=== PATIENT | female | born 1975 | race African-American/Black ===

== ENCOUNTER 2017-04-10 13:00 | Emergency (ER) | payer OTHER ==
[~2017-04-10] VITALS: Ht 160 cm; Wt 64.9 kg
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
[2017-04-10] MEDS ORDERED: TYLENOL EXTRA500 MG ORAL (16:30)
[2017-04-10] MEDS ORDERED: BACITRACIN-P28.35 GM TP (16:30)
[2017-04-10] MEDS ORDERED: CYCLOBENZAPRINE10 MG ORAL (16:30)
[2017-04-10 16:47] VITALS: BP 122/65
[2017-04-10 16:48] VITALS: BP 117/68
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
--- NOTE | 2017-04-11 10:54 | Diagnostic Imaging Report ---
Indication: Headache Technique: Contiguous 5 mm thick transaxial imaging of the head obtained in a Siemens Sensation [address] scanner. Soft tissue and bone windows generated. Total Dose length Product (DLP): [address] Dose Index Volume (CTDIvol): 70.38 mGy Comparison: none Findings: The size and configuration of the cortical sulci, basal cisterns, and ventricles are within normal limits for age. There is no mass effect, midline shift, or edema identified. There is no evidence of acute hemorrhage or abnormal intra-axial or extra-axial fluid collections. The bones and soft tissues are unremarkable. Mild mucosal thickening in ethmoid sinus noted. Impression: No mass effect, edema or acute bleed. Sinusitis The CT scanner at [facility] is accredited by the [employer] and the scans are performed using dose optimization techniques as appropriate to a performed exam including Automatic Exposure control.
--- NOTE | 2017-04-11 11:55 | Diagnostic Imaging Report ---
Indication: Chest pain Comparison: None A single view chest radiograph was obtained. Findings: Cardiomediastinal appearance is within normal limits for age. Pulmonary vascularity is appropriate. The diaphragmatic contour is smooth and costophrenic angles are sharp. No pleural effusions are identified. The bones are unremarkable. Impression: No acute findings
== END 2017-04-10 16:48 | disposition home or self-care (01) ==
LOC: EMR 16:28
DX: S00.83XA Contusion of other part of head, initial encounter (principal); S10.93XA Contusion of unspecified part of neck, initial encounter; S40.811A Abrasion of right upper arm, initial encounter; Y04.2XXA Assault by strike against or bumped into by another person, initial encounter; Y92.89 Other specified places as the place of occurrence of the external cause; J32.9 Chronic sinusitis, unspecified
CPT/HCPCS: 70450; 70486; 71010; 99284

== ENCOUNTER 2017-08-12 22:48 | Emergency (ER) | payer OTHER ==
[~2017-08-12] VITALS: Ht 157.5 cm; Wt 67.6 kg
[~2017-08-12 22:48] MED LIST: BACITRACIN-P28.35 GM TP; CYCLOBENZAPRINE10 MG ORAL; TYLENOL EXTRA500 MG ORAL
[2017-08-12 23:10] VITALS: BP 103/74
[2017-08-12] MEDS ORDERED: Morphine Sulfate 4mg/ml Inj IVP ONE (23:30)
[2017-08-12] MEDS ORDERED: Ketorolac 30mg Inj IV ONE (23:30)
[2017-08-12 23:54] LABS: APPEARANCE,URINE SLIGHTLY CLOUDY; KETONES,URINE NEGATIVE (NEGATIVE); LEUKOCYTE ESTERASE ,URINE 2+ (NEGATIVE); NITRITE,URINE NEGATIVE (NEGATIVE); PH,URINE 6 (4.5-8.0); PROTEIN,URINE NEGATIVE (NEGATIVE); UROBILINOGEN,URINE 1 MG/DL (0.0-1.0)
[2017-08-13] LABS: ICTOTEST NEGATIVE
[2017-08-13 00:01] LABS: BASOPHILS % (AUTO) 1.3 % (0.0-2.0); EOSINOPHILS % (AUTO) 4.2 % (0.0-3.0); LYMPHOCYTES % (AUTO) 39.6 % (20.0-45.0); MEAN CORPUSCULAR HEMOGLOBIN 27.1 PG (27.0-31.0); MEAN CORPUSCULAR HGB CONC 32.5 G/DL (32.0-36.0); MEAN CORPUSCULAR VOLUME 83 FL (80-99); MEAN PLATELET VOLUME 9.3 FL (6.5-10.1); NEUTROPHILS % (AUTO) 48.8 % (45.0-75.0); PLATELET COUNT 179 K/UL (150-450); RED BLOOD COUNT 4.77 M/UL (4.20-5.40); RED CELL DISTRIBUTION WIDTH 12.1 % (11.6-14.8); WHITE BLOOD COUNT 8.8 K/UL (4.8-10.8)
[2017-08-13 00:03] LABS: BACTERIA,URINE FEW /HPF; SQUAMOUS EPITHELIAL CELL,UR MODERATE /LPF (NONE/OCC); TRANSITIONAL EPI CELLS,URINE FEW /LPF; WBC,URINE 20-30 /HPF (0 - 2)
[2017-08-13 00:04] LABS: ANION GAP 7 mmol/L (5-15); CALCIUM 8.8 MG/DL (8.5-10.1); CARBON DIOXIDE 28 MMOL/L (21-32); CHLORIDE 105 MMOL/L (98-107); CREATININE 1.1 MG/DL (0.55-1.30); GLOMERULAR FILTRATION RATE > 60 mL/min (>60); POTASSIUM 3.6 MMOL/L (3.5-5.1); SODIUM 140 MMOL/L (136-145)
[2017-08-13 00:08] LABS: ALANINE AMINOTRANSFERASE 388 U/L (12-78); ASPARTATE AMINO TRANSFERASE 283 U/L (15-37); LIPASE 101 U/L (73-393); TOTAL PROTEIN 7.1 G/DL (6.4-8.2)
[2017-08-13] MEDS ORDERED: Piperacillin/Tazobactam 3.375 GM in NS 55 ML IVPB ONE (00:30)
[2017-08-13] MEDS ORDERED: Zosyn 3.375gm inj ONE (00:59)
[2017-08-13 01:00] VITALS: BP 103/74
--- NOTE | 2017-08-13 01:43 | Emergency Room Report ---
History of Present Illness General Chief Complaint: Abdominal Pain Source: Patient Present Illness HPI 42-year-old female walks in with one week of "severe abdominal pain". Pain started at same time as menstrual cycle. States doesn't usually have painful menstrual cycle. No associated nausea, vomiting, diarrhea. Previous cholecystectomy. Went to outside hospital a few days ago, stay she had an x-ray , but was told nothing is wrong and was discharged with Tylenol. Has been taking Tylenol but without much improvement. Associated with polyuria but no dysuria or vaginal discharge. Allergies: Coded Allergies: No Known Allergies (Unverified , 04/10/17) Patient History Past Medical History: none Past Surgical History: naren Pertinent Family History: none Social History: Denies: smoking, alcohol use, drug use Last Menstrual Period: 08/12/17 Now: No Immunizations: UTD Reviewed Nursing Documentation: PMH: Agreed, PSxH: Agreed Nursing Documentation-PMH Past Medical History: No History, Except For Review of Systems All Other Systems: negative except mentioned in HPI Physical Exam Vital Signs Date Time Temp Pulse Resp B/P (MAP) Pulse Ox O2 Delivery O2 Flow Rate FiO2 08/12/17 23:06 98.2 67 15 103/74 100 Room Air Sp02 EP Interpretation: reviewed, normal General Appearance: normal inspection, well appearing, no apparent distress, alert, GCS 15, non-toxic Head: normocephalic, atraumatic Eyes: bilateral eye PERRL, bilateral eye EOMI ENT: normal ENT inspection, hearing grossly normal, normal voice Neck: normal inspection, full range of motion, supple, no bony tend Respiratory: normal inspection, lungs clear, normal breath sounds, no respiratory distress, no retraction, no wheezing Cardiovascular #1: regular rate, rhythm, no edema Gastrointestinal: normal inspection, normal bowel sounds, soft, no guarding, no hernia, other - mild suprapubic tenderpation Genitourinary: no CVA tenderness Musculoskeletal: normal inspection, back normal, normal range of motion, Doc' s Sign negative Neurologic: normal inspection, alert, oriented x3, responsive, spiral runner III-XII nml as tested, speech normal Psychiatric: normal inspection, judgement/insight normal, mood/affect normal Skin: normal inspection, normal color, no rash Medical Decision Making Diagnostic Impression: Primary Impression: Cervical cyst Additional Impression: UTI (urinary tract infection) Qualified Codes: N30.01 - Acute cystitis with hematuria ER Course 42-year-old female with suprapubic pain painful menstruation. H&H stable, no leukocytosis. UA grossly infected. CT significant for 4 x 4 by 4 cm cervical cyst with questionable stenosis. All other acute abdominal or pelvic findings to correlate with patient's symptoms. Is given IV dose of antibiotics for UTI. Symptoms much improved after pain meds. Paged Dr Downs - Dr Gutierrez covering. Was paged at 1am. No call back by 2am. Patient didnt want to wait anymore. Discharge with Motrin for pain, antibiotics for UTI, was also given copy of Wang urinalysis and results of CT. Advise close followup with [facility] for cervical cyst. ER course: Patient has remained stable during ED stay. Patient is to be discharged to home. Prescriptions given are motrin, macrobid Patient is instructed to follow up with their primary care doctor within 5 days. Patient is instructed to follow up with senior branch manager within 3 days. Strict return precautions discussed with patient such as fever, chills, worsening/severe pain, nausea, vomiting, which may indicate severe illness. Patient verbalizes understanding and agrees with plan. Please note that this Emergency Department Report was dictated using My[employer]MD[employer] cementer technology software, occasionally this can lead to erroneous entry secondary to interpretation by the dictation equipment Last Vital Signs Date Time Temp Pulse Resp B/P (MAP) Pulse Ox O2 Delivery O2 Flow Rate FiO2 08/13/17 00:25 98.3 08/12/17 23:10 15 103/74 100 Room Air 08/12/17 23:06 67 Status: improved Disposition: HOME, SELF-CARE Scripts Nitrofurantoin Monohyd/M-Cryst* (MACROBID 100 MG*) 100 Mg Capsule 100 MG ORAL EVERY 12 HOURS for 7 Days, #14 CAP Prov: RICCO SEBASTIAN M.D. 08/13/17 Ibuprofen* (MOTRIN*) 600 Mg Tablet 600 MG ORAL THREE TIMES A DAY for 7 Days, #30 TAB 0 Refills Prov: RICCO SEBASTIAN M.D. 08/13/17 Referrals: [facility],REFERRING (PCP) RICCO SEBASTIAN M.D. Aug 13, 2017 01:43
[2017-08-13] MEDS ORDERED: IBUPROFEN600 MG ORAL (01:45)
[2017-08-13] MEDS ORDERED: NITROFURANTOIN100 M2 ORAL (01:45)
[2017-08-13 01:55] VITALS: BP 102/48
--- NOTE | 2017-08-13 09:37 | Diagnostic Imaging Report ---
Indication: Abdominal pain Technique: CT of the abdomen and pelvis utilizing automated exposure control with intravenous contrast. Venous scanning performed. CT dose: Total DLP 619 mGycm; CTDI vol 13.7 mGy Comparison: None Findings: Lung bases are clear. The liver is mildly enlarged. Cholecystectomy clips are seen. The adrenal glands, spleen and pancreas are grossly unremarkable. There is a left renal cyst that measures 10 mm. There is limited evaluation of the bowel without oral contrast. The small bowel loops are normal in caliber. There is no appendicitis. Bladder is grossly unremarkable. There is apparent cervical dilatation with a fluid fluid level grossly measuring 4.2 x 3.9 x 3.2 cm. There is also low-density in the endometrial canal measuring 8 mm in thickness. Mild degenerative changes of the spine are seen. Impression: Limited evaluation of the bowel without oral contrast. No mechanical bowel obstruction. Cholecystectomy. Mild biliary dilatation in width common bile duct measuring 6 mm. Clinical correlation recommended. Apparent dilatation at the level of the cervix with fluid/fluid level grossly measuring 4.2 x 3.9 x 3.2 cm. Cystic cervical mass considered less likely. Gynecologic evaluation recommended. Other findings as above. The CT scanner at [facility] is accredited by the [place] and the scans are performed using protocols designed to limit radiation exposure to as low as reasonably achievable to attain images of sufficient resolution adequate for diagnostic evaluation.
== END 2017-08-13 01:55 | disposition home or self-care (01) ==
LOC: EMR 23:15
DX: N30.01 Acute cystitis with hematuria (principal); N88.8 Other specified noninflammatory disorders of cervix uteri
CPT/HCPCS: 36415; 74177; 80053; 81003; 81025; 83605; 83690; 85025; 87086; 96374; 96375; 99284; J1885; J2270; J2405; J2543; Q9967

== ENCOUNTER 2018-02-15 18:29 | Emergency (ER) | payer OTHER ==
[~2018-02-15] VITALS: Ht 160 cm; Wt 63.5 kg
[~2018-02-15 18:29] MED LIST changes: +IBUPROFEN600 MG ORAL; +NITROFURANTOIN100 M2 ORAL
[2018-02-15 18:30] VITALS: BP 109/74
[2018-02-15] MEDS ORDERED: Norco 5mg/325mg tab ORAL ONE (19:15)
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
[2018-02-15 19:45] VITALS: BP 111/76
[2018-02-15] MEDS ORDERED: IBUPROFEN600 MG ORAL (20:28)
[2018-02-15] MEDS ORDERED: LIDODERM700 M1 TOPIC (20:28)
[2018-02-15] MEDS ORDERED: ACETAMINOPHEN-1 EAC1 ORAL (20:28)
[2018-02-15 20:46] VITALS: BP 112/78
[2018-02-15 20:54] VITALS: BP 112/78
--- NOTE | 2018-02-16 14:38 | Diagnostic Imaging Report ---
Indication: Pain, injury Technique: 2 views of the left hip Comparison: none Findings: No acute fractures. No dislocations. Joint spaces are preserved. Normal mineralization. Impression: No acute process This agrees with the preliminary interpretation provided overnight by [facility]iology service.
== END 2018-02-15 21:00 | disposition home or self-care (01) ==
LOC: EDBD 18:29 → EMR 19:00
DX: S70.02XA Contusion of left hip, initial encounter (principal); S70.12XA Contusion of left thigh, initial encounter; Y04.2XXA Assault by strike against or bumped into by another person, initial encounter
CPT/HCPCS: 73502; 99284